=== PATIENT | male | born 1940 | race Caucasian/White ===

== ENCOUNTER → 2020-03-13 | Outpatient (CLI) | payer MEDICARE, OTHER ==
[2016-02-16 15:35] VITALS: BP 118/78
[~2020-03-13] MED LIST: AMLODIPINE BESY10 MG PO; CITALOPRAM20 MG PO; FENTANYL TR25 MCG/HR TD; FIBER TABLETS1 TAB PO; GABAPENTIN100 MG PO; LASIX 20MG TABL20 MG PO; LOSARTAN-HCTZ 50-12.; MELOXICAM15 MG PO; OMEPRAZOLE20 MG PO; OMNICEF 300MG300 MG PO; PAIN RELIEVER500 M2 PO; TOPROL XL25 MG PO; ULTRAM 50MG TAB50 MG PO; XARELTO10 MG PO; ZOCOR10 MG PO; [UNRECOGNIZED DRUG - OTHER] PO
[2020-03-13 09:44] LABS: POTASSIUM 4.3 mmol/L (3.5-5.1)
[2020-03-13 09:45] LABS: CALCIUM 9.2 mg/dL (8.3-10.5)
== END ==
LOC: LAB 07:25
PROVIDERS: Family Medicine
DX: N17.9 Acute kidney failure, unspecified (principal)

== ENCOUNTER → 2020-03-30 | Outpatient (CLI) | payer MEDICARE, OTHER ==
[2016-02-16 15:35] VITALS: BP 118/78
--- NOTE | 2020-03-30 09:45 | NUR ---
PATIENT REPORTS HE VOIDED PRIOR TO STUDY AND DOES NOT FEEL LIKE HE NEEDS TO VOID NOW. PATIENT STATES IT IS HARD FOR HIM TO GET IT GOING. BLADDER SCAN PERFORMED ON PATIENT WITH HIM LYING FLAT ON CART. PATIENT TOLERATED WELL. ASSISTED BACK INTO WHEELCHAIR WITH [facility] STAFF AND OUT OF DEPARTMENT WITHOUT INCIDENT. 2 SCANS PERFORMED WITH FIRST SCAN SHOWING PVR 34ML AND SECOND SCAN SHOWS 32ML.
== END ==
LOC: RAD 09:30 → AMSURD 09:47
DX: N18.3 Chronic kidney disease, stage 3 (moderate) (principal)

== ENCOUNTER 2020-06-15 09:36 | Inpatient (IN) | payer MEDICARE, OTHER ==
[~2020-06-15] VITALS: Ht 190.5 cm; Wt 91.4 kg
[2020-06-15] MEDS ORDERED: DOXYCYCLINE MO100 M3 PO (14:13)
[2020-06-15] MEDS ORDERED: TRAMADOL 50 MG TAB PO (14:14)
[2020-06-15] MEDS ORDERED: GUAIFENESIN-DM 15 M1 PO (14:15)
[2020-06-15] MEDS ORDERED: DECADRON6 M1 PO (14:16)
[2020-06-15] MEDS ORDERED: GABAPENTIN100 MG PO (14:16)
[2020-06-15] MEDS ORDERED: AMIODARONE200 MG PO (14:17)
[2020-06-15] MEDS ORDERED: BUDESONIDE0.5 MG/2 M IH (14:18)
[2020-06-15] MEDS ORDERED: KEPPRA 500MG500 MG PO (14:19)
[2020-06-15] MEDS ORDERED: NORVASC 10MG10 MG PO (14:19)
[2020-06-15] MEDS ORDERED: MIRALAX17 GM PO (14:23)
[2020-06-15 14:26] VITALS: BP 143/73
[2020-06-15] MEDS ORDERED: MAG-AL LIQUID 230 ML PO (14:29)
[2020-06-15] MEDS ORDERED: VOLTAREN GEL1% TP (14:30)
[2020-06-15] MEDS ORDERED: ICAPS AREDS SO1 EACH PO (14:31)
[2020-06-15 15:05] VITALS: BP 143/73
[2020-06-15 18:02] LABS: ALBUMIN 3.9 g/dL (3.4-4.8)
[2020-06-15 18:04] LABS: CALCIUM 8.8 mg/dL (8.3-10.5)
[2020-06-15 18:05] LABS: TOTAL PROTEIN 8.2 g/dL (6.2-8.1)
[2020-06-15 18:07] LABS: TOTAL BILIRUBIN 0.3 mg/dL (0.2-1.2)
[2020-06-15 18:08] LABS: HEMATOCRIT 38.7 % (42.0-52.0); HEMOGLOBIN 12.2 g/dL (13.5-18.0); MEAN CELL VOLUME 89 fl (78-100); MEAN CORPUSCULAR HEMOGLOBIN 28 pg (27-31); MEAN CORPUSCULAR HGB CONC 32 g/dL (33-37); MEAN PLATELET VOLUME 10.9 fl (7.4-10.4); PLATELET COUNT 210 K/mm3 (130-400); RED BLOOD COUNT 4.33 M/mm3 (4.20-5.60); WHITE BLOOD COUNT 8.4 K/mm3 (4.8-10.8)
[2020-06-15 19:20] LABS: LYMPHOCYTE 8 % (20-51); MONOCYTE 8 % (3-10); NEUTROPHILS 84 % (42-75)
[2020-06-16 01:10] VITALS: BP 149/67
[2020-06-16 06:20] VITALS: BP 136/56
[2020-06-16 17:19] VITALS: BP 148/58
[2020-06-16 20:00] VITALS: BP 147/61
[2020-06-17 06:00] VITALS: BP 144/71
[2020-06-17 11:09] VITALS: BP 128/62
[2020-06-17 14:56] VITALS: BP 129/57
[2020-06-17 14:56] LABS: HEMATOCRIT 35.9 % (42.0-52.0); HEMOGLOBIN 11.4 g/dL (13.5-18.0); MEAN CELL VOLUME 88 fl (78-100); MEAN CORPUSCULAR HEMOGLOBIN 28 pg (27-31); MEAN CORPUSCULAR HGB CONC 32 g/dL (33-37); MEAN PLATELET VOLUME 10.4 fl (7.4-10.4); PLATELET COUNT 209 K/mm3 (130-400); RED BLOOD COUNT 4.07 M/mm3 (4.20-5.60); RED CELL DISTRIBUTION WIDTH 13.8 % (11.5-14.5); WHITE BLOOD COUNT 7.8 K/mm3 (4.8-10.8)
[2020-06-17 14:57] LABS: LYMPHOCYTE 7 % (20-51); NEUTROPHILS 88 % (42-75)
[2020-06-17 14:58] LABS: MONOCYTE 5 % (3-10)
[2020-06-17 15:10] LABS: CALCIUM 8.2 mg/dL (8.3-10.5)
[2020-06-17 18:06] VITALS: BP 130/66
[2020-06-17 20:00] VITALS: BP 124/62
[2020-06-18 05:56] VITALS: BP 133/66
[2020-06-18 11:28] LABS: HEMATOCRIT 35.3 % (42.0-52.0); HEMOGLOBIN 11.1 g/dL (13.5-18.0); MEAN CELL VOLUME 89 fl (78-100); MEAN CORPUSCULAR HEMOGLOBIN 28 pg (27-31); MEAN CORPUSCULAR HGB CONC 31 g/dL (33-37); MEAN PLATELET VOLUME 10.7 fl (7.4-10.4); PLATELET COUNT 204 K/mm3 (130-400); RED BLOOD COUNT 3.99 M/mm3 (4.20-5.60); WHITE BLOOD COUNT 8.1 K/mm3 (4.8-10.8)
[2020-06-18 11:34] LABS: POTASSIUM 4.8 mmol/L (3.5-5.1)
[2020-06-18 11:35] LABS: CALCIUM 8.1 mg/dL (8.3-10.5)
[2020-06-18 11:46] VITALS: BP 142/66
[2020-06-18 11:57] LABS: LYMPHOCYTE 6 % (20-51); MONOCYTE 1 % (3-10); NEUTROPHILS 93 % (42-75)
[2020-06-18 14:20] VITALS: BP 142/63
[2020-06-18 18:12] VITALS: BP 146/66
[2020-06-19] VITALS (9 sets, daily range): BP systolic 123–175; BP diastolic 53–81
[2020-06-19 09:01] LABS: HEMATOCRIT 38.3 % (42.0-52.0); HEMOGLOBIN 12.1 g/dL (13.5-18.0); MEAN CELL VOLUME 89 fl (78-100); MEAN CORPUSCULAR HEMOGLOBIN 28 pg (27-31); MEAN CORPUSCULAR HGB CONC 32 g/dL (33-37); MEAN PLATELET VOLUME 10.8 fl (7.4-10.4); PLATELET COUNT 258 K/mm3 (130-400); RED BLOOD COUNT 4.31 M/mm3 (4.20-5.60); RED CELL DISTRIBUTION WIDTH 14.2 % (11.5-14.5); WHITE BLOOD COUNT 12.3 K/mm3 (4.8-10.8)
[2020-06-19 09:04] LABS: ALBUMIN 3.4 g/dL (3.4-4.8); POTASSIUM 4.5 mmol/L (3.5-5.1)
[2020-06-19 09:05] LABS: CALCIUM 8.3 mg/dL (8.3-10.5)
[2020-06-19 09:06] LABS: TOTAL PROTEIN 7.5 g/dL (6.2-8.1)
[2020-06-19 09:08] LABS: TOTAL BILIRUBIN 0.4 mg/dL (0.2-1.2)
[2020-06-19 09:15] LABS: BAND 1 % (0-10); LYMPHOCYTE 8 % (20-51); MONOCYTE 2 % (3-10); NEUTROPHILS 89 % (42-75)
[2020-06-19 09:36] LABS: URINE APPEARANCE CLEAR; URINE BILIRUBIN NEGATIVE (NEGATIVE); URINE BLOOD NEGATIVE (NEGATIVE); URINE COLOR YELLOW; URINE GLUCOSE NEGATIVE (NEGATIVE); URINE KETONE NEGATIVE (NEGATIVE); URINE LEUKOCYTE ESTERASE NEGATIVE (NEGATIVE); URINE MUCUS PRESENT (NOT PRESENT); URINE NITRATE NEGATIVE (NEGATIVE); URINE PROTEIN(semi-quant) 1+ mg/dL (NEGATIVE); URINE UROBILINOGEN NORMAL (NORMAL)
[2020-06-19 16:12] LABS: HEMATOCRIT 35.6 % (42.0-52.0); HEMOGLOBIN 11.1 g/dL (13.5-18.0); MEAN CELL VOLUME 90 fl (78-100); MEAN CORPUSCULAR HEMOGLOBIN 28 pg (27-31); MEAN CORPUSCULAR HGB CONC 31 g/dL (33-37); MEAN PLATELET VOLUME 10.8 fl (7.4-10.4); PLATELET COUNT 209 K/mm3 (130-400); RED BLOOD COUNT 3.97 M/mm3 (4.20-5.60); RED CELL DISTRIBUTION WIDTH 14.5 % (11.5-14.5); WHITE BLOOD COUNT 10.1 K/mm3 (4.8-10.8)
[2020-06-19 16:16] LABS: LYMPHOCYTE 5 % (20-51); MONOCYTE 5 % (3-10); NEUTROPHILS 90 % (42-75)
[2020-06-20] VITALS (7 sets, daily range): BP systolic 119–148; BP diastolic 62–68
[2020-06-20 06:04] LABS: POTASSIUM 3.7 mmol/L (3.5-5.1)
[2020-06-20 06:06] LABS: TOTAL PROTEIN 6.9 g/dL (6.2-8.1)
[2020-06-20 06:08] LABS: TOTAL BILIRUBIN 0.4 mg/dL (0.2-1.2)
[2020-06-20 06:52] LABS: HEMATOCRIT 36.3 % (42.0-52.0); HEMOGLOBIN 11.6 g/dL (13.5-18.0); MEAN CELL VOLUME 90 fl (78-100); MEAN CORPUSCULAR HEMOGLOBIN 29 pg (27-31); MEAN CORPUSCULAR HGB CONC 32 g/dL (33-37); MEAN PLATELET VOLUME 10.9 fl (7.4-10.4); PLATELET COUNT 226 K/mm3 (130-400); RED BLOOD COUNT 4.04 M/mm3 (4.20-5.60); RED CELL DISTRIBUTION WIDTH 14.5 % (11.5-14.5)
[2020-06-20 07:11] LABS: TROPONIN-I 0.05 ng/mL (<0.030)
[2020-06-20 07:31] LABS: BAND 1 % (0-10); LYMPHOCYTE 8 % (20-51); MONOCYTE 3 % (3-10); NEUTROPHILS 88 % (42-75)
[2020-06-20 08:00] LABS: PARTIAL THROMBOPLASTIN TIME 29.1 SECONDS (21.0-32.0); PROTHROMBIN TIME 11.1 SECONDS (9.0-12.0)
[2020-06-20 08:33] LABS: D-DIMER 1.4 mg/L FEU (0.15-0.50)
[2020-06-20 08:41] LABS: ERYTHROCYTE SEDIMENTATION RATE 115 mm/hr (0-20)
[2020-06-20 16:10] LABS: CALCIUM 7.6 mg/dL (8.3-10.5)
== END 2020-06-20 15:21 | disposition short-term general hospital (02) | DRG 177 ==
LOC: MED/SURG 09:36
PROVIDERS: Family Medicine; Internal Medicine; Nurse Practitioner Primary Care; ADMIT Nurse Practitioner
PROC: 02HV33Z Insertion of Infusion Device into Superior Vena Cava, Percutaneous Approach (ICD-10-PCS; principal; 2020-06-20)
DX: U07.1 COVID-19 (principal); J12.89 Other viral pneumonia; A41.9 Sepsis, unspecified organism; J96.00 Acute respiratory failure, unspecified whether with hypoxia or hypercapnia; I13.0 Hypertensive heart and chronic kidney disease with heart failure and stage 1 through stage 4 chronic kidney disease, or unspecified chronic kidney disease; F33.9 Major depressive disorder, recurrent, unspecified; J44.1 Chronic obstructive pulmonary disease with (acute) exacerbation; J44.0 Chronic obstructive pulmonary disease with (acute) lower respiratory infection; E87.2 Acidosis; I50.9 Heart failure, unspecified; M06.9 Rheumatoid arthritis, unspecified; N18.9 Chronic kidney disease, unspecified; M51.36 Other intervertebral disc degeneration, lumbar region; Z66 Do not resuscitate; I48.0 Paroxysmal atrial fibrillation; E78.5 Hyperlipidemia, unspecified; G40.909 Epilepsy, unspecified, not intractable, without status epilepticus; K59.00 Constipation, unspecified; R53.81 Other malaise; Z79.891 Long term (current) use of opiate analgesic; Z88.5 Allergy status to narcotic agent; Z87.891 Personal history of nicotine dependence
CPT/HCPCS: C9113; J1650; J1940; J1953; J2060; J2270; J2543; J2930; J3370; J3480; J7030; J7050

== ENCOUNTER 2020-06-20 15:21 | Inpatient (IN) | payer MEDICARE, OTHER ==
[~2020-06-20] VITALS: Ht 190.5 cm; Wt 91.8 kg
[~2020-06-20 15:21] MED LIST changes: +AMIODARONE200 MG PO; +BUDESONIDE0.5 MG/2 M IH; +DECADRON6 M1 PO; +DOXYCYCLINE MO100 M3 PO; +GUAIFENESIN-DM 15 M1 PO; +ICAPS AREDS SO1 EACH PO; +KEPPRA 500MG500 MG PO; +MAG-AL LIQUID 230 ML PO; +MIRALAX17 GM PO; +NORVASC 10MG10 MG PO; +TRAMADOL 50 MG TAB PO; +VOLTAREN GEL1% TP
[2020-06-20 16:00] VITALS: BP 137/64
[2020-06-20 17:13] VITALS: BP 137/64
[2020-06-20 18:29] VITALS: BP 141/66
[2020-06-20 20:00] VITALS: BP 137/61
[2020-06-20 22:00] VITALS: BP 108/58
[2020-06-20 22:50] VITALS: BP 108/58
[2020-06-21 02:00] VITALS: BP 109/48
[2020-06-21 05:56] VITALS: BP 160/78
[2020-06-21 06:46] LABS: HEMATOCRIT 34.7 % (42.0-52.0); HEMOGLOBIN 10.7 g/dL (13.5-18.0); MEAN CELL VOLUME 90 fl (78-100); MEAN CORPUSCULAR HEMOGLOBIN 28 pg (27-31); MEAN CORPUSCULAR HGB CONC 31 g/dL (33-37); MEAN PLATELET VOLUME 10.6 fl (7.4-10.4); PLATELET COUNT 226 K/mm3 (130-400); RED BLOOD COUNT 3.84 M/mm3 (4.20-5.60); RED CELL DISTRIBUTION WIDTH 14.6 % (11.5-14.5); WHITE BLOOD COUNT 15.3 K/mm3 (4.8-10.8)
[2020-06-21 06:59] LABS: POTASSIUM 3.5 mmol/L (3.5-5.1)
[2020-06-21 07:00] LABS: CALCIUM 7.6 mg/dL (8.3-10.5)
[2020-06-21 07:07] LABS: MAGNESIUM 2.47 mg/dL (1.60-2.60)
[2020-06-21 07:12] LABS: BAND 1 % (0-10); LYMPHOCYTE 2 % (20-51); MONOCYTE 2 % (3-10); NEUTROPHILS 95 % (42-75)
[2020-06-21 07:14] LABS: TROPONIN-I 0.06 ng/mL (<0.030)
[2020-06-21 07:53] LABS: ERYTHROCYTE SEDIMENTATION RATE 101 mm/hr (0-20)
[2020-06-21 09:15] VITALS: BP 144/58
== END 2020-06-21 15:24 | disposition expired | DRG 177 ==
LOC: MED/SURG 15:21
PROVIDERS: ADMIT Nurse Practitioner Family
DX: U07.1 COVID-19 (principal); J12.89 Other viral pneumonia; I13.0 Hypertensive heart and chronic kidney disease with heart failure and stage 1 through stage 4 chronic kidney disease, or unspecified chronic kidney disease; J44.0 Chronic obstructive pulmonary disease with (acute) lower respiratory infection; E87.2 Acidosis; J44.9 Chronic obstructive pulmonary disease, unspecified; I50.9 Heart failure, unspecified; M06.9 Rheumatoid arthritis, unspecified; N18.9 Chronic kidney disease, unspecified; I48.0 Paroxysmal atrial fibrillation; M51.36 Other intervertebral disc degeneration, lumbar region; G47.33 Obstructive sleep apnea (adult) (pediatric); Z66 Do not resuscitate; M10.9 Gout, unspecified; E78.5 Hyperlipidemia, unspecified; G40.909 Epilepsy, unspecified, not intractable, without status epilepticus; Z79.891 Long term (current) use of opiate analgesic; Z87.891 Personal history of nicotine dependence; Z88.5 Allergy status to narcotic agent
CPT/HCPCS: C9113; J1630; J1953; J2060; J2270; J2543; J2930; J7030